=== PATIENT | male | born 1970 | race Caucasian/White ===

== ENCOUNTER 2023-03-08 07:58 | Inpatient (IN) | payer MEDICARE ==
[2023-03-08] MEDS ORDERED: Albuterol 8 GM Inhaler INH PRN (15:56)
[2023-03-08] MEDS ORDERED: Naloxone 4 MG Nasal Spray NAS PRN (15:56)
[2023-03-08] MEDS ORDERED: [UNRECOGNIZED DRUG - OTHER] FLUSH PRN (15:56)
[2023-03-08] MEDS ORDERED: SODIUM CHLORIDE FLUSH PRN (15:56)
[2023-03-08] MEDS ORDERED: Baclofen 10 MG Tab PO ONE (16:00)
[2023-03-08] MEDS ORDERED: ceFAZolin 2 GM Vial IVPUSH ONE (16:00)
[2023-03-08] MEDS ORDERED: oxyCODONE 5 MG Tab PO PRN (16:07)
[2023-03-08] MEDS: oxyCODONE 5 MG Tab PO PRN (16:14)
[2023-03-08] MEDS: Sodium Chloride 0.9% 10 ML Syringe FLUSH PRN (16:19)
[2023-03-08] MEDS: Ibuprofen 400 MG Tab PO SCH ×2 (16:26→20:02)
[2023-03-08] MEDS: Acetaminophen 500 MG Tab PO SCH ×2 (16:27→20:01)
[2023-03-08] MEDS: Pregabalin 100 MG Cap PO SCH (20:01)
[2023-03-08] MEDS: Tamsulosin 0.4 MG Cap.ER PO SCH (20:01)
[2023-03-08] MEDS: Baclofen 10 MG Tab PO SCH (20:03)
[2023-03-08] MEDS: guaiFENesin 600 MG Tab.ER PO SCH (20:03)
[2023-03-09] MEDS: oxyCODONE 5 MG Tab PO PRN ×5 (00:16→23:31)
[2023-03-09] MEDS: Sodium Chloride 0.9% 10 ML Syringe FLUSH PRN ×5 (00:18→23:40)
[2023-03-09] MEDS: ceFAZolin 2 GM Vial IVPUSH SCH ×4 (00:20→23:33)
[2023-03-09] MEDS: Pantoprazole 40 MG Tab.CR PO SCH (06:46)
[2023-03-09] MEDS ORDERED: Sennosides/Docusate Sodium 50-8.6 MG Tab PO SCH (09:00)
[2023-03-09] MEDS ORDERED: Lactulose Soln 10 GM/15 ML 30 ML UD Cup PO PRN (09:01)
[2023-03-09] MEDS: Finasteride 5 MG Tab PO SCH (10:13)
[2023-03-09] MEDS: Atenolol 25 MG Tab PO SCH (10:13)
[2023-03-09] MEDS: Ibuprofen 400 MG Tab PO SCH ×3 (10:13→20:59)
[2023-03-09] MEDS: guaiFENesin 600 MG Tab.ER PO SCH ×3 (10:14→20:59)
[2023-03-09] MEDS: Acetaminophen 500 MG Tab PO SCH ×3 (10:14→20:58)
[2023-03-09] MEDS: Baclofen 10 MG Tab PO SCH ×3 (10:14→20:58)
[2023-03-09] MEDS: Venlafaxine 150 MG Cap.ER PO SCH (10:14)
[2023-03-09] MEDS: Pregabalin 100 MG Cap PO SCH ×2 (10:23→20:57)
[2023-03-09] MEDS: Tamsulosin 0.4 MG Cap.ER PO SCH (20:58)
[2023-03-10] MEDS: oxyCODONE 5 MG Tab PO PRN ×5 (04:47→20:54)
[2023-03-10] MEDS: Pantoprazole 40 MG Tab.CR PO SCH (06:36)
[2023-03-10] MEDS: Sodium Chloride 0.9% 10 ML Syringe FLUSH PRN ×5 (07:54→23:53)
[2023-03-10] MEDS: ceFAZolin 2 GM Vial IVPUSH SCH ×3 (07:55→23:48)
[2023-03-10] MEDS: Venlafaxine 150 MG Cap.ER PO SCH (08:41)
[2023-03-10] MEDS: Baclofen 10 MG Tab PO SCH ×3 (08:41→20:47)
[2023-03-10] MEDS: Ibuprofen 400 MG Tab PO SCH ×3 (08:41→20:47)
[2023-03-10] MEDS: guaiFENesin 600 MG Tab.ER PO SCH ×3 (08:41→20:47)
[2023-03-10] MEDS: Atenolol 25 MG Tab PO SCH (08:42)
[2023-03-10] MEDS: Acetaminophen 500 MG Tab PO SCH ×3 (08:42→20:48)
[2023-03-10] MEDS: Finasteride 5 MG Tab PO SCH (08:42)
[2023-03-10] MEDS: Pregabalin 100 MG Cap PO SCH ×2 (08:51→20:46)
[2023-03-10] MEDS: Polyethylene Glycol 3350 Powder 17 GM Packet PO PRN (15:54)
[2023-03-10] MEDS: Tamsulosin 0.4 MG Cap.ER PO SCH (20:47)
[2023-03-11] MEDS: oxyCODONE 5 MG Tab PO PRN ×5 (00:54→20:42)
[2023-03-11] MEDS: Pantoprazole 40 MG Tab.CR PO SCH (05:04)
[2023-03-11] MEDS: ceFAZolin 2 GM Vial IVPUSH SCH ×2 (08:02→16:30)
[2023-03-11] MEDS: Baclofen 10 MG Tab PO SCH ×3 (08:03→20:41)
[2023-03-11] MEDS: guaiFENesin 600 MG Tab.ER PO SCH ×3 (08:04→20:41)
[2023-03-11] MEDS: Venlafaxine 150 MG Cap.ER PO SCH (08:04)
[2023-03-11] MEDS: Finasteride 5 MG Tab PO SCH (08:04)
[2023-03-11] MEDS: Ibuprofen 400 MG Tab PO SCH ×3 (08:04→20:41)
[2023-03-11] MEDS: Acetaminophen 500 MG Tab PO SCH ×3 (08:05→20:42)
[2023-03-11] MEDS: Atenolol 25 MG Tab PO SCH (08:06)
[2023-03-11] MEDS: Pregabalin 100 MG Cap PO SCH ×2 (08:08→20:41)
[2023-03-11] MEDS: Polyethylene Glycol 3350 Powder 17 GM Packet PO PRN (13:07)
[2023-03-11] MEDS: Sodium Chloride 0.9% 10 ML Syringe FLUSH PRN ×2 (16:30→16:34)
[2023-03-11] MEDS: Tamsulosin 0.4 MG Cap.ER PO SCH (20:41)
[2023-03-12] MEDS: ceFAZolin 2 GM Vial IVPUSH SCH ×3 (00:40→17:29)
[2023-03-12] MEDS: Sodium Chloride 0.9% 10 ML Syringe FLUSH PRN ×3 (00:45→17:28)
[2023-03-12] MEDS: oxyCODONE 5 MG Tab PO PRN ×6 (00:51→23:01)
[2023-03-12] MEDS: Pantoprazole 40 MG Tab.CR PO SCH (05:46)
[2023-03-12] MEDS: Acetaminophen 500 MG Tab PO SCH ×3 (08:19→20:59)
[2023-03-12] MEDS: Venlafaxine 150 MG Cap.ER PO SCH (08:20)
[2023-03-12] MEDS: Ibuprofen 400 MG Tab PO SCH ×3 (08:20→20:58)
[2023-03-12] MEDS: guaiFENesin 600 MG Tab.ER PO SCH ×3 (08:21→20:58)
[2023-03-12] MEDS: Finasteride 5 MG Tab PO SCH (08:21)
[2023-03-12] MEDS: Baclofen 10 MG Tab PO SCH ×3 (08:21→20:58)
[2023-03-12] MEDS: Atenolol 25 MG Tab PO SCH (08:21)
[2023-03-12] MEDS: Pregabalin 100 MG Cap PO SCH ×2 (08:51→20:58)
[2023-03-12] MEDS: Tamsulosin 0.4 MG Cap.ER PO SCH (20:58)
[2023-03-13] MEDS: ceFAZolin 2 GM Vial IVPUSH SCH ×3 (00:16→16:16)
[2023-03-13] MEDS: Sodium Chloride 0.9% 10 ML Syringe FLUSH PRN ×3 (00:21→16:20)
[2023-03-13] MEDS: oxyCODONE 5 MG Tab PO PRN ×5 (03:05→21:03)
[2023-03-13] MEDS: Pantoprazole 40 MG Tab.CR PO SCH (06:06)
[2023-03-13] MEDS: Venlafaxine 150 MG Cap.ER PO SCH (08:27)
[2023-03-13] MEDS: Pregabalin 100 MG Cap PO SCH ×2 (08:27→21:01)
[2023-03-13] MEDS: guaiFENesin 600 MG Tab.ER PO SCH ×3 (08:28→21:01)
[2023-03-13] MEDS: Baclofen 10 MG Tab PO SCH ×3 (08:28→21:01)
[2023-03-13] MEDS: Finasteride 5 MG Tab PO SCH (08:29)
[2023-03-13] MEDS: Ibuprofen 400 MG Tab PO SCH ×3 (08:29→21:02)
[2023-03-13] MEDS: Atenolol 25 MG Tab PO SCH (08:29)
[2023-03-13] MEDS: Acetaminophen 500 MG Tab PO SCH ×3 (08:30→21:01)
[2023-03-13] MEDS: Tamsulosin 0.4 MG Cap.ER PO SCH (21:02)
[2023-03-14] MEDS: ceFAZolin 2 GM Vial IVPUSH SCH ×3 (00:52→15:02)
[2023-03-14] MEDS: oxyCODONE 5 MG Tab PO PRN ×6 (01:01→22:21)
[2023-03-14] MEDS: Sodium Chloride 0.9% 10 ML Syringe FLUSH PRN ×2 (01:02→05:10)
[2023-03-14] MEDS: Pantoprazole 40 MG Tab.CR PO SCH (05:03)
[2023-03-14 05:30] LABS: CREATININE 1.1 mg/dL (0.70-1.30); EST CRCL DRUG DOSING (CG) 78.35 mL/min
[2023-03-14 05:35] LABS: BASOPHILS ABSOLUTE AUTO 0.1 x10-3/uL (0.0-0.3); BASOPHILS PERCENT AUTO 2.2 % (0.3-3.8); EOSINOPHILS ABSOLUTE AUTO 0.2 x10-3/uL (0.0-0.6); EOSINOPHILS PERCENT AUTO 5.6 % (0.1-6.8); HEMOGLOBIN 11.4 g/dL (12.9-17.7); LYMPHOCYTES ABSOLUTE AUTO 1.1 x10-3/uL (0.5-4.5); LYMPHOCYTES PERCENT AUTO 27.7 % (15.8-45.3); MEAN CORPUSCULAR HEMOGLOBIN 29.5 pg (27.0-33.3); MEAN CORPUSCULAR HGB CONC 33.5 g/dL (28.7-35.3); MEAN CORPUSCULAR VOLUME 88.2 fL (80.8-98.7); MEAN PLATELET VOLUME 8.4 fL (6.7-11.0); MONOCYTES ABSOLUTE AUTO 0.4 x10-3/uL (0.0-1.2); MONOCYTES PERCENT AUTO 9.4 % (5.5-15.2); NEUTROPHILS ABSOLUTE AUTO 2.2 x10-3/uL (1.7-6.9); NEUTROPHILS PERCENT AUTO 55.1 % (40.3-71.8); PLATELET COUNT,PLT 226 x10(3)uL (117-477); RED BLOOD CELL COUNT 3.86 x10(6)uL (3.90-5.90); RED CELL DISTRIBUTION WIDTH 15.4 % (12.4-15.0)
[2023-03-14 06:02] LABS: SEDIMENTATION RATE MANUAL 94 mm/hr (0-15)
[2023-03-14] MEDS: Baclofen 10 MG Tab PO SCH ×3 (08:41→21:36)
[2023-03-14] MEDS: guaiFENesin 600 MG Tab.ER PO SCH ×3 (08:41→21:38)
[2023-03-14] MEDS: Acetaminophen 500 MG Tab PO SCH ×3 (08:41→21:37)
[2023-03-14] MEDS: Atenolol 25 MG Tab PO SCH (08:42)
[2023-03-14] MEDS: Ibuprofen 400 MG Tab PO SCH ×3 (08:43→21:36)
[2023-03-14] MEDS: Finasteride 5 MG Tab PO SCH (08:43)
[2023-03-14] MEDS: Venlafaxine 150 MG Cap.ER PO SCH (08:44)
[2023-03-14] MEDS: Pregabalin 100 MG Cap PO SCH ×2 (08:51→21:36)
[2023-03-14] MEDS: Polyethylene Glycol 3350 Powder 17 GM Packet PO PRN (18:30)
[2023-03-14] MEDS: Tamsulosin 0.4 MG Cap.ER PO SCH (21:36)
[2023-03-15] MEDS: ceFAZolin 2 GM Vial IVPUSH SCH ×4 (01:00→23:58)
[2023-03-15] MEDS: Sodium Chloride 0.9% 10 ML Syringe FLUSH PRN ×6 (01:10→23:57)
[2023-03-15] MEDS: oxyCODONE 5 MG Tab PO PRN ×6 (02:24→23:54)
[2023-03-15] MEDS: Pantoprazole 40 MG Tab.CR PO SCH (06:25)
[2023-03-15] MEDS: Acetaminophen 500 MG Tab PO SCH ×3 (08:46→20:31)
[2023-03-15] MEDS: Ibuprofen 400 MG Tab PO SCH ×3 (08:46→20:30)
[2023-03-15] MEDS: Venlafaxine 150 MG Cap.ER PO SCH (08:47)
[2023-03-15] MEDS: Atenolol 25 MG Tab PO SCH (08:47)
[2023-03-15] MEDS: guaiFENesin 600 MG Tab.ER PO SCH ×3 (08:47→20:31)
[2023-03-15] MEDS: Finasteride 5 MG Tab PO SCH (08:47)
[2023-03-15] MEDS: Baclofen 10 MG Tab PO SCH ×3 (08:48→20:30)
[2023-03-15] MEDS: Pregabalin 100 MG Cap PO SCH ×2 (08:54→20:36)
[2023-03-15] MEDS: Tamsulosin 0.4 MG Cap.ER PO SCH (20:29)
[2023-03-16] MEDS: Sodium Chloride 0.9% 10 ML Syringe FLUSH PRN ×5 (00:06→16:31)
[2023-03-16] MEDS: oxyCODONE 5 MG Tab PO PRN ×5 (03:52→20:36)
[2023-03-16] MEDS: Pantoprazole 40 MG Tab.CR PO SCH (06:38)
[2023-03-16] MEDS: ceFAZolin 2 GM Vial IVPUSH SCH ×2 (08:28→16:24)
[2023-03-16] MEDS: Venlafaxine 150 MG Cap.ER PO SCH (08:46)
[2023-03-16] MEDS: Pregabalin 100 MG Cap PO SCH ×2 (08:46→20:36)
[2023-03-16] MEDS: Ibuprofen 400 MG Tab PO SCH ×3 (08:46→20:37)
[2023-03-16] MEDS: Baclofen 10 MG Tab PO SCH ×3 (08:46→20:40)
[2023-03-16] MEDS: Finasteride 5 MG Tab PO SCH (08:47)
[2023-03-16] MEDS: guaiFENesin 600 MG Tab.ER PO SCH ×3 (08:47→20:40)
[2023-03-16] MEDS: Atenolol 25 MG Tab PO SCH (08:47)
[2023-03-16] MEDS: Acetaminophen 500 MG Tab PO SCH ×3 (08:48→20:38)
[2023-03-16] MEDS: Polyethylene Glycol 3350 Powder 17 GM Packet PO PRN (12:12)
[2023-03-16] MEDS: diphenhydrAMINE 25 MG Cap PO PRN ×2 (15:18→20:44)
[2023-03-16] MEDS: Tamsulosin 0.4 MG Cap.ER PO SCH (20:40)
[2023-03-17] MEDS: Sodium Chloride 0.9% 10 ML Syringe FLUSH PRN ×5 (00:25→16:05)
[2023-03-17] MEDS: ceFAZolin 2 GM Vial IVPUSH SCH ×3 (00:26→15:59)
[2023-03-17] MEDS: oxyCODONE 5 MG Tab PO PRN ×6 (00:30→22:26)
[2023-03-17] MEDS: diphenhydrAMINE 25 MG Cap PO PRN (00:34)
[2023-03-17] MEDS: Pantoprazole 40 MG Tab.CR PO SCH (06:07)
[2023-03-17] MEDS: Pregabalin 100 MG Cap PO SCH ×2 (09:08→22:25)
[2023-03-17] MEDS: Ibuprofen 400 MG Tab PO SCH ×3 (09:08→22:22)
[2023-03-17] MEDS: Baclofen 10 MG Tab PO SCH ×3 (09:08→22:21)
[2023-03-17] MEDS: Venlafaxine 150 MG Cap.ER PO SCH (09:08)
[2023-03-17] MEDS: guaiFENesin 600 MG Tab.ER PO SCH ×3 (09:09→22:22)
[2023-03-17] MEDS: Acetaminophen 500 MG Tab PO SCH ×3 (09:10→22:22)
[2023-03-17] MEDS: Finasteride 5 MG Tab PO SCH (09:10)
[2023-03-17] MEDS: Atenolol 25 MG Tab PO SCH (09:11)
[2023-03-17] MEDS: Tamsulosin 0.4 MG Cap.ER PO SCH (22:21)
[2023-03-18] MEDS: diphenhydrAMINE 25 MG Cap PO PRN (00:02)
[2023-03-18] MEDS: ceFAZolin 2 GM Vial IVPUSH SCH ×4 (00:02→23:29)
[2023-03-18] MEDS: Sodium Chloride 0.9% 10 ML Syringe FLUSH PRN ×5 (00:03→23:30)
[2023-03-18] MEDS: oxyCODONE 5 MG Tab PO PRN ×5 (02:43→19:58)
[2023-03-18] MEDS: Pantoprazole 40 MG Tab.CR PO SCH (06:48)
[2023-03-18] MEDS: Pregabalin 100 MG Cap PO SCH ×2 (09:28→22:08)
[2023-03-18] MEDS: Acetaminophen 500 MG Tab PO SCH ×3 (09:28→22:09)
[2023-03-18] MEDS: Baclofen 10 MG Tab PO SCH ×3 (09:30→22:08)
[2023-03-18] MEDS: Ibuprofen 400 MG Tab PO SCH ×3 (09:30→22:08)
[2023-03-18] MEDS: guaiFENesin 600 MG Tab.ER PO SCH ×3 (09:30→22:09)
[2023-03-18] MEDS: Finasteride 5 MG Tab PO SCH (09:30)
[2023-03-18] MEDS: Atenolol 25 MG Tab PO SCH (09:31)
[2023-03-18] MEDS: Venlafaxine 150 MG Cap.ER PO SCH (09:31)
[2023-03-18] MEDS: Tamsulosin 0.4 MG Cap.ER PO SCH (22:07)
[2023-03-19] MEDS: oxyCODONE 5 MG Tab PO PRN ×6 (00:06→20:47)
[2023-03-19] MEDS: Pantoprazole 40 MG Tab.CR PO SCH (05:35)
[2023-03-19] MEDS: Baclofen 10 MG Tab PO SCH ×3 (08:32→20:52)
[2023-03-19] MEDS: Atenolol 25 MG Tab PO SCH (08:33)
[2023-03-19] MEDS: Ibuprofen 400 MG Tab PO SCH ×3 (08:34→20:53)
[2023-03-19] MEDS: Acetaminophen 500 MG Tab PO SCH ×3 (08:35→20:54)
[2023-03-19] MEDS: guaiFENesin 600 MG Tab.ER PO SCH ×3 (08:36→20:53)
[2023-03-19] MEDS: Venlafaxine 150 MG Cap.ER PO SCH (08:36)
[2023-03-19] MEDS: Finasteride 5 MG Tab PO SCH (08:36)
[2023-03-19] MEDS: Sodium Chloride 0.9% 10 ML Syringe FLUSH PRN ×2 (08:37→16:33)
[2023-03-19] MEDS: ceFAZolin 2 GM Vial IVPUSH SCH ×2 (08:38→16:34)
[2023-03-19] MEDS: Pregabalin 100 MG Cap PO SCH ×2 (08:51→20:53)
[2023-03-19] MEDS: diphenhydrAMINE 25 MG Cap PO PRN ×2 (12:32→20:47)
[2023-03-19] MEDS: Tamsulosin 0.4 MG Cap.ER PO SCH (20:52)
[2023-03-20] MEDS: Sodium Chloride 0.9% 10 ML Syringe FLUSH PRN ×6 (00:02→16:27)
[2023-03-20] MEDS: ceFAZolin 2 GM Vial IVPUSH SCH ×3 (00:04→16:24)
[2023-03-20] MEDS: Pantoprazole 40 MG Tab.CR PO SCH (06:27)
[2023-03-20] MEDS: oxyCODONE 5 MG Tab PO PRN ×4 (06:31→20:53)
[2023-03-20] MEDS: Venlafaxine 150 MG Cap.ER PO SCH (08:39)
[2023-03-20] MEDS: guaiFENesin 600 MG Tab.ER PO SCH ×3 (08:40→20:44)
[2023-03-20] MEDS: Pregabalin 100 MG Cap PO SCH ×2 (08:40→20:58)
[2023-03-20] MEDS: Ibuprofen 400 MG Tab PO SCH ×3 (08:40→20:44)
[2023-03-20] MEDS: Baclofen 10 MG Tab PO SCH ×3 (08:40→20:44)
[2023-03-20] MEDS: Acetaminophen 500 MG Tab PO SCH ×3 (08:41→20:42)
[2023-03-20] MEDS: Finasteride 5 MG Tab PO SCH (08:41)
[2023-03-20] MEDS: Atenolol 25 MG Tab PO SCH (08:42)
[2023-03-20] MEDS: Tamsulosin 0.4 MG Cap.ER PO SCH (20:44)
[2023-03-20] MEDS: diphenhydrAMINE 25 MG Cap PO PRN (21:54)
[2023-03-21] MEDS: ceFAZolin 2 GM Vial IVPUSH SCH ×3 (00:58→16:19)
[2023-03-21] MEDS: Sodium Chloride 0.9% 10 ML Syringe FLUSH PRN ×6 (00:59→16:27)
[2023-03-21] MEDS: oxyCODONE 5 MG Tab PO PRN ×6 (01:04→22:01)
[2023-03-21] MEDS: Pantoprazole 40 MG Tab.CR PO SCH (04:59)
[2023-03-21] MEDS: diphenhydrAMINE 25 MG Cap PO PRN ×2 (05:01→18:23)
[2023-03-21 06:55] LABS: BASOPHILS ABSOLUTE AUTO 0.1 x10-3/uL (0.0-0.3); BASOPHILS PERCENT AUTO 3.3 % (0.3-3.8); EOSINOPHILS ABSOLUTE AUTO 0.2 x10-3/uL (0.0-0.6); EOSINOPHILS PERCENT AUTO 6.3 % (0.1-6.8); HEMATOCRIT 33.8 % (38.3-50.1); HEMOGLOBIN 11.3 g/dL (12.9-17.7); LYMPHOCYTES ABSOLUTE AUTO 0.9 x10-3/uL (0.5-4.5); LYMPHOCYTES PERCENT AUTO 30.8 % (15.8-45.3); MEAN CORPUSCULAR HEMOGLOBIN 29.5 pg (27.0-33.3); MEAN CORPUSCULAR HGB CONC 33.5 g/dL (28.7-35.3); MEAN PLATELET VOLUME 8.1 fL (6.7-11.0); MONOCYTES ABSOLUTE AUTO 0.3 x10-3/uL (0.0-1.2); MONOCYTES PERCENT AUTO 9.8 % (5.5-15.2); NEUTROPHILS ABSOLUTE AUTO 1.5 x10-3/uL (1.7-6.9); NEUTROPHILS PERCENT AUTO 49.8 % (40.3-71.8); PLATELET COUNT,PLT 148 x10(3)uL (117-477); RED BLOOD CELL COUNT 3.84 x10(6)uL (3.90-5.90); RED CELL DISTRIBUTION WIDTH 15.3 % (12.4-15.0)
[2023-03-21 07:02] LABS: CREATININE 1.1 mg/dL (0.70-1.30); EST CRCL DRUG DOSING (CG) 78.35 mL/min
[2023-03-21 07:18] LABS: SEDIMENTATION RATE MANUAL 75 mm/hr (0-15)
[2023-03-21] MEDS: Venlafaxine 150 MG Cap.ER PO SCH (09:08)
[2023-03-21] MEDS: Baclofen 10 MG Tab PO SCH ×3 (09:08→20:13)
[2023-03-21] MEDS: Pregabalin 100 MG Cap PO SCH ×2 (09:08→20:19)
[2023-03-21] MEDS: Finasteride 5 MG Tab PO SCH (09:09)
[2023-03-21] MEDS: Ibuprofen 400 MG Tab PO SCH ×3 (09:09→20:12)
[2023-03-21] MEDS: Acetaminophen 500 MG Tab PO SCH ×3 (09:09→20:11)
[2023-03-21] MEDS: guaiFENesin 600 MG Tab.ER PO SCH ×3 (09:09→20:12)
[2023-03-21] MEDS: Atenolol 25 MG Tab PO SCH (09:10)
[2023-03-21] MEDS: Tamsulosin 0.4 MG Cap.ER PO SCH (20:12)
[2023-03-22] MEDS: Sodium Chloride 0.9% 10 ML Syringe FLUSH PRN ×6 (00:09→23:54)
[2023-03-22] MEDS: ceFAZolin 2 GM Vial IVPUSH SCH ×4 (00:09→23:55)
[2023-03-22] MEDS: Pantoprazole 40 MG Tab.CR PO SCH (05:59)
[2023-03-22] MEDS: oxyCODONE 5 MG Tab PO PRN ×5 (05:59→22:10)
[2023-03-22] MEDS: Venlafaxine 150 MG Cap.ER PO SCH (09:49)
[2023-03-22] MEDS: Baclofen 10 MG Tab PO SCH ×3 (09:49→20:54)
[2023-03-22] MEDS: Finasteride 5 MG Tab PO SCH (09:50)
[2023-03-22] MEDS: guaiFENesin 600 MG Tab.ER PO SCH ×3 (09:50→20:55)
[2023-03-22] MEDS: Ibuprofen 400 MG Tab PO SCH ×3 (09:50→20:54)
[2023-03-22] MEDS: Acetaminophen 500 MG Tab PO SCH ×3 (09:51→20:55)
[2023-03-22] MEDS: Atenolol 25 MG Tab PO SCH (09:52)
[2023-03-22] MEDS: Pregabalin 100 MG Cap PO SCH ×2 (09:56→21:02)
[2023-03-22] MEDS: diphenhydrAMINE 25 MG Cap PO PRN (13:01)
[2023-03-22] MEDS: Tamsulosin 0.4 MG Cap.ER PO SCH (20:54)
[2023-03-22] MEDS: Polyethylene Glycol 3350 Powder 17 GM Packet PO PRN (21:02)
[2023-03-23] MEDS: Sodium Chloride 0.9% 10 ML Syringe FLUSH PRN ×7 (00:01→23:54)
[2023-03-23] MEDS: oxyCODONE 5 MG Tab PO PRN ×4 (02:10→21:44)
[2023-03-23] MEDS: Pantoprazole 40 MG Tab.CR PO SCH (06:09)
[2023-03-23] MEDS: diphenhydrAMINE 25 MG Cap PO PRN ×2 (06:09→13:31)
[2023-03-23] MEDS: ceFAZolin 2 GM Vial IVPUSH SCH ×3 (08:31→23:48)
[2023-03-23] MEDS: Baclofen 10 MG Tab PO SCH ×3 (08:33→21:49)
[2023-03-23] MEDS: Pregabalin 100 MG Cap PO SCH ×2 (08:33→21:46)
[2023-03-23] MEDS: guaiFENesin 600 MG Tab.ER PO SCH ×3 (08:33→21:50)
[2023-03-23] MEDS: Ibuprofen 400 MG Tab PO SCH ×3 (08:34→21:50)
[2023-03-23] MEDS: Acetaminophen 500 MG Tab PO SCH ×3 (08:34→21:48)
[2023-03-23] MEDS: Atenolol 25 MG Tab PO SCH (08:35)
[2023-03-23] MEDS: Venlafaxine 150 MG Cap.ER PO SCH (08:45)
[2023-03-23] MEDS: Finasteride 5 MG Tab PO SCH (08:45)
[2023-03-23] MEDS: Tamsulosin 0.4 MG Cap.ER PO SCH (21:49)
[2023-03-24] MEDS: diphenhydrAMINE 25 MG Cap PO PRN ×3 (00:34→18:08)
[2023-03-24] MEDS: oxyCODONE 5 MG Tab PO PRN ×5 (01:47→22:15)
[2023-03-24] MEDS: Pantoprazole 40 MG Tab.CR PO SCH (05:53)
[2023-03-24] MEDS: ceFAZolin 2 GM Vial IVPUSH SCH ×2 (08:45→17:43)
[2023-03-24] MEDS: Ibuprofen 400 MG Tab PO SCH ×3 (08:47→20:47)
[2023-03-24] MEDS: Atenolol 25 MG Tab PO SCH (08:47)
[2023-03-24] MEDS: Venlafaxine 150 MG Cap.ER PO SCH (08:47)
[2023-03-24] MEDS: Finasteride 5 MG Tab PO SCH (08:47)
[2023-03-24] MEDS: Baclofen 10 MG Tab PO SCH ×3 (08:48→20:46)
[2023-03-24] MEDS: guaiFENesin 600 MG Tab.ER PO SCH ×3 (08:48→20:47)
[2023-03-24] MEDS: Acetaminophen 500 MG Tab PO SCH ×3 (08:48→20:46)
[2023-03-24] MEDS: Pregabalin 100 MG Cap PO SCH ×2 (10:04→20:45)
[2023-03-24] MEDS: Tamsulosin 0.4 MG Cap.ER PO SCH (20:45)
[2023-03-25] MEDS: Sodium Chloride 0.9% 10 ML Syringe FLUSH PRN ×3 (01:37→08:12)
[2023-03-25] MEDS: ceFAZolin 2 GM Vial IVPUSH SCH ×3 (01:38→16:21)
[2023-03-25] MEDS: oxyCODONE 5 MG Tab PO PRN ×5 (02:13→20:50)
[2023-03-25] MEDS: diphenhydrAMINE 25 MG Cap PO PRN ×2 (02:13→13:02)
[2023-03-25] MEDS: Pantoprazole 40 MG Tab.CR PO SCH (06:18)
[2023-03-25] MEDS: Baclofen 10 MG Tab PO SCH ×3 (08:08→20:48)
[2023-03-25] MEDS: guaiFENesin 600 MG Tab.ER PO SCH ×3 (08:08→20:47)
[2023-03-25] MEDS: Ibuprofen 400 MG Tab PO SCH ×3 (08:08→20:48)
[2023-03-25] MEDS: Acetaminophen 500 MG Tab PO SCH ×3 (08:08→20:49)
[2023-03-25] MEDS: Pregabalin 100 MG Cap PO SCH ×2 (08:09→20:48)
[2023-03-25] MEDS: Venlafaxine 150 MG Cap.ER PO SCH (08:11)
[2023-03-25] MEDS: Finasteride 5 MG Tab PO SCH (10:27)
[2023-03-25] MEDS: Atenolol 25 MG Tab PO SCH (10:28)
[2023-03-25] MEDS: Tamsulosin 0.4 MG Cap.ER PO SCH (20:48)
[2023-03-26] MEDS: ceFAZolin 2 GM Vial IVPUSH SCH ×3 (00:50→16:51)
[2023-03-26] MEDS: Sodium Chloride 0.9% 10 ML Syringe FLUSH PRN ×3 (00:50→09:11)
[2023-03-26] MEDS: oxyCODONE 5 MG Tab PO PRN ×4 (00:51→13:43)
[2023-03-26] MEDS: diphenhydrAMINE 25 MG Cap PO PRN ×2 (03:47→19:01)
[2023-03-26] MEDS: Polyethylene Glycol 3350 Powder 17 GM Packet PO PRN (03:51)
[2023-03-26] MEDS: Pantoprazole 40 MG Tab.CR PO SCH (06:11)
[2023-03-26] MEDS: Baclofen 10 MG Tab PO SCH ×3 (09:12→21:19)
[2023-03-26] MEDS: Pregabalin 100 MG Cap PO SCH ×2 (09:12→21:18)
[2023-03-26] MEDS: Ibuprofen 400 MG Tab PO SCH ×3 (09:12→21:19)
[2023-03-26] MEDS: Finasteride 5 MG Tab PO SCH (09:13)
[2023-03-26] MEDS: Acetaminophen 500 MG Tab PO SCH ×3 (09:14→21:18)
[2023-03-26] MEDS: Atenolol 25 MG Tab PO SCH (09:14)
[2023-03-26] MEDS: guaiFENesin 600 MG Tab.ER PO SCH ×3 (09:16→21:19)
[2023-03-26] MEDS: Venlafaxine 150 MG Cap.ER PO SCH (09:17)
[2023-03-26] MEDS ORDERED: Polyethylene Glycol 3350 Powder 17 GM Packet PO ONE (15:00)
[2023-03-26] MEDS: oxyCODONE 5 MG Tab PO SCH ×2 (17:51→21:18)
[2023-03-26] MEDS: Tamsulosin 0.4 MG Cap.ER PO SCH (21:19)
[2023-03-27] MEDS: Sodium Chloride 0.9% 10 ML Syringe FLUSH PRN ×6 (00:55→15:44)
[2023-03-27] MEDS: ceFAZolin 2 GM Vial IVPUSH SCH ×3 (00:55→15:41)
[2023-03-27] MEDS: oxyCODONE 5 MG Tab PO SCH ×6 (01:07→21:19)
[2023-03-27] MEDS: Pantoprazole 40 MG Tab.CR PO SCH (05:25)
[2023-03-27] MEDS: diphenhydrAMINE 25 MG Cap PO PRN ×2 (09:31→18:51)
[2023-03-27] MEDS: guaiFENesin 600 MG Tab.ER PO SCH ×3 (09:31→21:19)
[2023-03-27] MEDS: Acetaminophen 500 MG Tab PO SCH ×3 (09:32→21:19)
[2023-03-27] MEDS: Baclofen 10 MG Tab PO SCH ×3 (09:32→21:18)
[2023-03-27] MEDS: Ibuprofen 400 MG Tab PO SCH ×3 (09:32→21:18)
[2023-03-27] MEDS: Venlafaxine 150 MG Cap.ER PO SCH (09:32)
[2023-03-27] MEDS: Finasteride 5 MG Tab PO SCH (09:33)
[2023-03-27] MEDS: Atenolol 25 MG Tab PO SCH (09:34)
[2023-03-27] MEDS: Pregabalin 100 MG Cap PO SCH ×2 (09:39→21:19)
[2023-03-27] MEDS: valACYclovir 500 MG Tab PO SCH (09:39)
[2023-03-27] MEDS: Tamsulosin 0.4 MG Cap.ER PO SCH (21:18)
[2023-03-28] MEDS: ceFAZolin 2 GM Vial IVPUSH SCH ×3 (00:55→16:08)
[2023-03-28] MEDS: Sodium Chloride 0.9% 10 ML Syringe FLUSH PRN ×6 (00:55→16:12)
[2023-03-28] MEDS: oxyCODONE 5 MG Tab PO SCH ×6 (01:09→21:05)
[2023-03-28] MEDS: Pantoprazole 40 MG Tab.CR PO SCH (05:25)
[2023-03-28 08:18] LABS: BASOPHILS ABSOLUTE AUTO 0.1 x10-3/uL (0.0-0.3); EOSINOPHILS ABSOLUTE AUTO 0.2 x10-3/uL (0.0-0.6); EOSINOPHILS PERCENT AUTO 6.7 % (0.1-6.8); HEMATOCRIT 35.1 % (38.3-50.1); HEMOGLOBIN 11.6 g/dL (12.9-17.7); LYMPHOCYTES ABSOLUTE AUTO 0.9 x10-3/uL (0.5-4.5); LYMPHOCYTES PERCENT AUTO 27.9 % (15.8-45.3); MEAN CORPUSCULAR HEMOGLOBIN 29.3 pg (27.0-33.3); MEAN CORPUSCULAR HGB CONC 33.1 g/dL (28.7-35.3); MEAN CORPUSCULAR VOLUME 88.7 fL (80.8-98.7); MONOCYTES ABSOLUTE AUTO 0.3 x10-3/uL (0.0-1.2); NEUTROPHILS ABSOLUTE AUTO 1.7 x10-3/uL (1.7-6.9); NEUTROPHILS PERCENT AUTO 54.4 % (40.3-71.8); PLATELET COUNT,PLT 138 x10(3)uL (117-477); RED BLOOD CELL COUNT 3.96 x10(6)uL (3.90-5.90); WHITE BLOOD CELL COUNT,WBC 3.2 x10-3/uL (3.2-10.1)
[2023-03-28 08:28] LABS: CREATININE 1.2 mg/dL (0.70-1.30); EST CRCL DRUG DOSING (CG) 71.82 mL/min
[2023-03-28 08:40] LABS: SEDIMENTATION RATE MANUAL 62 mm/hr (0-15)
[2023-03-28] MEDS: valACYclovir 500 MG Tab PO SCH (09:15)
[2023-03-28] MEDS: Finasteride 5 MG Tab PO SCH (09:16)
[2023-03-28] MEDS: Pregabalin 100 MG Cap PO SCH ×2 (09:16→21:06)
[2023-03-28] MEDS: Acetaminophen 500 MG Tab PO SCH ×3 (09:16→21:13)
[2023-03-28] MEDS: Ibuprofen 400 MG Tab PO SCH ×3 (09:17→21:13)
[2023-03-28] MEDS: Baclofen 10 MG Tab PO SCH ×3 (09:17→21:13)
[2023-03-28] MEDS: Venlafaxine 150 MG Cap.ER PO SCH (09:18)
[2023-03-28] MEDS: guaiFENesin 600 MG Tab.ER PO SCH ×3 (09:18→21:13)
[2023-03-28] MEDS: Atenolol 25 MG Tab PO SCH (09:21)
[2023-03-28] MEDS: diphenhydrAMINE 25 MG Cap PO PRN (18:14)
[2023-03-28] MEDS: Tamsulosin 0.4 MG Cap.ER PO SCH (21:13)
[2023-03-29] MEDS: ceFAZolin 2 GM Vial IVPUSH SCH ×3 (01:00→15:51)
[2023-03-29] MEDS: oxyCODONE 5 MG Tab PO SCH ×6 (01:01→21:26)
[2023-03-29] MEDS: Pantoprazole 40 MG Tab.CR PO SCH (05:40)
[2023-03-29] MEDS: Sodium Chloride 0.9% 10 ML Syringe FLUSH PRN ×4 (07:48→16:03)
[2023-03-29] MEDS: Venlafaxine 150 MG Cap.ER PO SCH (08:46)
[2023-03-29] MEDS: valACYclovir 500 MG Tab PO SCH (08:46)
[2023-03-29] MEDS: Finasteride 5 MG Tab PO SCH (08:46)
[2023-03-29] MEDS: Ibuprofen 400 MG Tab PO SCH ×3 (08:47→21:27)
[2023-03-29] MEDS: Baclofen 10 MG Tab PO SCH ×3 (08:50→21:28)
[2023-03-29] MEDS: Atenolol 25 MG Tab PO SCH (08:51)
[2023-03-29] MEDS: guaiFENesin 600 MG Tab.ER PO SCH ×3 (08:51→21:26)
[2023-03-29] MEDS: Pregabalin 100 MG Cap PO SCH ×2 (09:17→21:26)
[2023-03-29] MEDS: Acetaminophen 500 MG Tab PO SCH ×3 (09:18→21:26)
[2023-03-29] MEDS: diphenhydrAMINE 25 MG Cap PO PRN ×2 (13:25→21:31)
[2023-03-29] MEDS: Tamsulosin 0.4 MG Cap.ER PO SCH (21:26)
[2023-03-30] MEDS: Sodium Chloride 0.9% 10 ML Syringe FLUSH PRN ×6 (00:58→16:40)
[2023-03-30] MEDS: ceFAZolin 2 GM Vial IVPUSH SCH ×3 (00:59→16:34)
[2023-03-30] MEDS: oxyCODONE 5 MG Tab PO SCH ×6 (01:03→21:24)
[2023-03-30] MEDS: Pantoprazole 40 MG Tab.CR PO SCH (05:11)
[2023-03-30] MEDS: diphenhydrAMINE 25 MG Cap PO PRN ×3 (09:26→21:30)
[2023-03-30] MEDS: Pregabalin 100 MG Cap PO SCH ×2 (09:26→21:23)
[2023-03-30] MEDS: Ibuprofen 400 MG Tab PO SCH ×3 (09:27→21:22)
[2023-03-30] MEDS: Baclofen 10 MG Tab PO SCH ×3 (09:28→21:23)
[2023-03-30] MEDS: Acetaminophen 500 MG Tab PO SCH ×3 (09:28→21:23)
[2023-03-30] MEDS: Atenolol 25 MG Tab PO SCH (09:28)
[2023-03-30] MEDS: valACYclovir 500 MG Tab PO SCH (09:28)
[2023-03-30] MEDS: Finasteride 5 MG Tab PO SCH (09:29)
[2023-03-30] MEDS: guaiFENesin 600 MG Tab.ER PO SCH ×3 (09:29→21:23)
[2023-03-30] MEDS: Venlafaxine 150 MG Cap.ER PO SCH (09:29)
[2023-03-30] MEDS: Tamsulosin 0.4 MG Cap.ER PO SCH (21:23)
[2023-03-31] MEDS: Sodium Chloride 0.9% 10 ML Syringe FLUSH PRN ×2 (00:55→01:02)
[2023-03-31] MEDS: ceFAZolin 2 GM Vial IVPUSH SCH ×3 (00:55→16:00)
[2023-03-31] MEDS: oxyCODONE 5 MG Tab PO SCH ×6 (01:03→20:56)
[2023-03-31] MEDS: Pantoprazole 40 MG Tab.CR PO SCH (05:13)
[2023-03-31] MEDS: Pregabalin 100 MG Cap PO SCH ×2 (08:42→20:56)
[2023-03-31] MEDS: Finasteride 5 MG Tab PO SCH (08:43)
[2023-03-31] MEDS: valACYclovir 500 MG Tab PO SCH (08:43)
[2023-03-31] MEDS: Acetaminophen 500 MG Tab PO SCH ×3 (08:44→20:57)
[2023-03-31] MEDS: Venlafaxine 150 MG Cap.ER PO SCH (08:44)
[2023-03-31] MEDS: guaiFENesin 600 MG Tab.ER PO SCH ×3 (08:45→20:58)
[2023-03-31] MEDS: Ibuprofen 400 MG Tab PO SCH ×3 (08:46→20:58)
[2023-03-31] MEDS: Baclofen 10 MG Tab PO SCH ×3 (08:47→20:58)
[2023-03-31] MEDS: Atenolol 25 MG Tab PO SCH (08:48)
[2023-03-31] MEDS: diphenhydrAMINE 25 MG Cap PO PRN (18:04)
[2023-03-31] MEDS: Tamsulosin 0.4 MG Cap.ER PO SCH (20:57)
[2023-04-01] MEDS: oxyCODONE 5 MG Tab PO SCH ×6 (00:57→20:50)
[2023-04-01] MEDS: ceFAZolin 2 GM Vial IVPUSH SCH ×3 (00:57→16:41)
[2023-04-01] MEDS: diphenhydrAMINE 25 MG Cap PO PRN ×3 (00:57→20:59)
[2023-04-01] MEDS: Sodium Chloride 0.9% 10 ML Syringe FLUSH PRN ×5 (01:06→16:44)
[2023-04-01] MEDS: Pantoprazole 40 MG Tab.CR PO SCH (05:03)
[2023-04-01] MEDS: Pregabalin 100 MG Cap PO SCH ×2 (09:26→20:50)
[2023-04-01] MEDS: valACYclovir 500 MG Tab PO SCH (09:27)
[2023-04-01] MEDS: Acetaminophen 500 MG Tab PO SCH ×3 (09:27→20:50)
[2023-04-01] MEDS: guaiFENesin 600 MG Tab.ER PO SCH ×3 (09:28→20:50)
[2023-04-01] MEDS: Ibuprofen 400 MG Tab PO SCH ×3 (09:28→20:51)
[2023-04-01] MEDS: Finasteride 5 MG Tab PO SCH (09:28)
[2023-04-01] MEDS: Baclofen 10 MG Tab PO SCH ×3 (09:28→20:50)
[2023-04-01] MEDS: Venlafaxine 150 MG Cap.ER PO SCH (09:29)
[2023-04-01] MEDS: Atenolol 25 MG Tab PO SCH (09:29)
[2023-04-01] MEDS: Tamsulosin 0.4 MG Cap.ER PO SCH (20:51)
[2023-04-02] MEDS: oxyCODONE 5 MG Tab PO SCH ×6 (00:52→20:51)
[2023-04-02] MEDS: ceFAZolin 2 GM Vial IVPUSH SCH ×3 (00:54→15:50)
[2023-04-02] MEDS: Sodium Chloride 0.9% 10 ML Syringe FLUSH PRN ×4 (00:59→15:50)
[2023-04-02] MEDS: Pantoprazole 40 MG Tab.CR PO SCH (05:06)
[2023-04-02] MEDS: Finasteride 5 MG Tab PO SCH (08:50)
[2023-04-02] MEDS: guaiFENesin 600 MG Tab.ER PO SCH ×3 (08:50→20:28)
[2023-04-02] MEDS: Baclofen 10 MG Tab PO SCH ×3 (08:51→20:28)
[2023-04-02] MEDS: Ibuprofen 400 MG Tab PO SCH ×3 (08:51→20:27)
[2023-04-02] MEDS: valACYclovir 500 MG Tab PO SCH (08:52)
[2023-04-02] MEDS: Acetaminophen 500 MG Tab PO SCH ×3 (08:53→20:28)
[2023-04-02] MEDS: Atenolol 25 MG Tab PO SCH (08:54)
[2023-04-02] MEDS: Venlafaxine 150 MG Cap.ER PO SCH (08:56)
[2023-04-02] MEDS: Pregabalin 100 MG Cap PO SCH ×2 (09:04→20:27)
[2023-04-02] MEDS: diphenhydrAMINE 25 MG Cap PO PRN (20:27)
[2023-04-02] MEDS: Tamsulosin 0.4 MG Cap.ER PO SCH (20:28)
[2023-04-03] MEDS: ceFAZolin 2 GM Vial IVPUSH SCH ×3 (00:57→15:15)
[2023-04-03] MEDS: oxyCODONE 5 MG Tab PO SCH ×6 (01:02→21:02)
[2023-04-03] MEDS: Sodium Chloride 0.9% 10 ML Syringe FLUSH PRN ×5 (01:03→15:17)
[2023-04-03] MEDS: Pantoprazole 40 MG Tab.CR PO SCH (05:09)
[2023-04-03] MEDS: Venlafaxine 150 MG Cap.ER PO SCH (08:08)
[2023-04-03] MEDS: Baclofen 10 MG Tab PO SCH ×3 (08:08→21:03)
[2023-04-03] MEDS: Ibuprofen 400 MG Tab PO SCH ×3 (08:09→21:03)
[2023-04-03] MEDS: Finasteride 5 MG Tab PO SCH (08:10)
[2023-04-03] MEDS: guaiFENesin 600 MG Tab.ER PO SCH ×3 (08:10→21:01)
[2023-04-03] MEDS: Atenolol 25 MG Tab PO SCH (08:13)
[2023-04-03] MEDS: Acetaminophen 500 MG Tab PO SCH ×3 (08:13→21:04)
[2023-04-03] MEDS: Pregabalin 100 MG Cap PO SCH ×2 (08:36→21:02)
[2023-04-03] MEDS: Tamsulosin 0.4 MG Cap.ER PO SCH (21:02)
[2023-04-03] MEDS: diphenhydrAMINE 25 MG Cap PO PRN (21:13)
[2023-04-04] MEDS: Sodium Chloride 0.9% 10 ML Syringe FLUSH PRN ×3 (01:15→08:59)
[2023-04-04] MEDS: oxyCODONE 5 MG Tab PO SCH ×6 (01:20→21:09)
[2023-04-04] MEDS: ceFAZolin 2 GM Vial IVPUSH SCH ×3 (01:26→16:56)
[2023-04-04] MEDS: Pantoprazole 40 MG Tab.CR PO SCH (05:23)
[2023-04-04] MEDS: diphenhydrAMINE 25 MG Cap PO PRN ×3 (05:34→21:10)
[2023-04-04 07:03] LABS: BASOPHILS ABSOLUTE AUTO 0.1 x10-3/uL (0.0-0.3); BASOPHILS PERCENT AUTO 1.9 % (0.3-3.8); EOSINOPHILS ABSOLUTE AUTO 0.1 x10-3/uL (0.0-0.6); EOSINOPHILS PERCENT AUTO 4.7 % (0.1-6.8); HEMATOCRIT 32.6 % (38.3-50.1); LYMPHOCYTES ABSOLUTE AUTO 0.7 x10-3/uL (0.5-4.5); LYMPHOCYTES PERCENT AUTO 24.4 % (15.8-45.3); MEAN CORPUSCULAR HEMOGLOBIN 29.7 pg (27.0-33.3); MEAN CORPUSCULAR HGB CONC 33.8 g/dL (28.7-35.3); MEAN CORPUSCULAR VOLUME 87.8 fL (80.8-98.7); MONOCYTES ABSOLUTE AUTO 0.4 x10-3/uL (0.0-1.2); MONOCYTES PERCENT AUTO 13.7 % (5.5-15.2); NEUTROPHILS ABSOLUTE AUTO 1.6 x10-3/uL (1.7-6.9); NEUTROPHILS PERCENT AUTO 55.3 % (40.3-71.8); PLATELET COUNT,PLT 150 x10(3)uL (117-477); RED BLOOD CELL COUNT 3.71 x10(6)uL (3.90-5.90); RED CELL DISTRIBUTION WIDTH 14.6 % (12.4-15.0); WHITE BLOOD CELL COUNT,WBC 2.8 x10-3/uL (3.2-10.1)
[2023-04-04 07:09] LABS: CREATININE 1.3 mg/dL (0.70-1.30); EST CRCL DRUG DOSING (CG) 66.29 mL/min
[2023-04-04 07:23] LABS: SEDIMENTATION RATE MANUAL 46 mm/hr (0-15)
[2023-04-04] MEDS: Finasteride 5 MG Tab PO SCH (09:18)
[2023-04-04] MEDS: Baclofen 10 MG Tab PO SCH ×3 (09:21→21:06)
[2023-04-04] MEDS: Pregabalin 100 MG Cap PO SCH ×2 (09:22→21:19)
[2023-04-04] MEDS: Ibuprofen 400 MG Tab PO SCH ×3 (09:22→21:06)
[2023-04-04] MEDS: guaiFENesin 600 MG Tab.ER PO SCH ×3 (09:23→21:08)
[2023-04-04] MEDS: Acetaminophen 500 MG Tab PO SCH ×3 (09:24→21:08)
[2023-04-04] MEDS: Venlafaxine 150 MG Cap.ER PO SCH (09:24)
[2023-04-04] MEDS: Atenolol 25 MG Tab PO SCH (09:24)
[2023-04-04] MEDS: Tamsulosin 0.4 MG Cap.ER PO SCH (21:06)
[2023-04-04] MEDS: Polyethylene Glycol 3350 Powder 17 GM Packet PO PRN (21:10)
[2023-04-04] MEDS ORDERED: Pregabalin 100 MG Cap ONE (21:18)
[2023-04-05] MEDS: ceFAZolin 2 GM Vial IVPUSH SCH ×3 (00:31→16:48)
[2023-04-05] MEDS: Sodium Chloride 0.9% 10 ML Syringe FLUSH PRN ×2 (00:35→08:22)
[2023-04-05] MEDS: oxyCODONE 5 MG Tab PO SCH ×6 (01:03→21:00)
[2023-04-05] MEDS: Pantoprazole 40 MG Tab.CR PO SCH (05:03)
[2023-04-05] MEDS: Pregabalin 100 MG Cap PO SCH ×2 (08:11→21:02)
[2023-04-05] MEDS: Baclofen 10 MG Tab PO SCH ×3 (08:11→21:01)
[2023-04-05] MEDS: Venlafaxine 150 MG Cap.ER PO SCH (08:11)
[2023-04-05] MEDS: Ibuprofen 400 MG Tab PO SCH ×3 (08:12→21:02)
[2023-04-05] MEDS: guaiFENesin 600 MG Tab.ER PO SCH ×3 (08:13→21:02)
[2023-04-05] MEDS: Acetaminophen 500 MG Tab PO SCH ×3 (08:14→21:03)
[2023-04-05] MEDS: Finasteride 5 MG Tab PO SCH (08:14)
[2023-04-05] MEDS: Atenolol 25 MG Tab PO SCH (08:16)
[2023-04-05] MEDS: diphenhydrAMINE 25 MG Cap PO PRN ×2 (09:19→21:03)
[2023-04-05] MEDS: Polyethylene Glycol 3350 Powder 17 GM Packet PO PRN (09:20)
[2023-04-05] MEDS: Tamsulosin 0.4 MG Cap.ER PO SCH (21:01)
[2023-04-06] MEDS: ceFAZolin 2 GM Vial IVPUSH SCH ×3 (00:30→16:26)
[2023-04-06] MEDS: Sodium Chloride 0.9% 10 ML Syringe FLUSH PRN ×3 (00:37→08:14)
[2023-04-06] MEDS: oxyCODONE 5 MG Tab PO SCH ×6 (00:43→20:56)
[2023-04-06] MEDS: Pantoprazole 40 MG Tab.CR PO SCH (05:10)
[2023-04-06] MEDS: Venlafaxine 150 MG Cap.ER PO SCH (09:09)
[2023-04-06] MEDS: Baclofen 10 MG Tab PO SCH ×3 (09:09→20:59)
[2023-04-06] MEDS: Ibuprofen 400 MG Tab PO SCH ×3 (09:09→20:59)
[2023-04-06] MEDS: Pregabalin 100 MG Cap PO SCH ×2 (09:09→20:56)
[2023-04-06] MEDS: Finasteride 5 MG Tab PO SCH (09:10)
[2023-04-06] MEDS: guaiFENesin 600 MG Tab.ER PO SCH ×3 (09:10→21:01)
[2023-04-06] MEDS: Acetaminophen 500 MG Tab PO SCH ×3 (09:11→21:00)
[2023-04-06] MEDS: Atenolol 25 MG Tab PO SCH (09:12)
[2023-04-06] MEDS: Tamsulosin 0.4 MG Cap.ER PO SCH (20:58)
[2023-04-06] MEDS: diphenhydrAMINE 25 MG Cap PO PRN (22:33)
[2023-04-07] MEDS: Sodium Chloride 0.9% 10 ML Syringe FLUSH PRN ×4 (00:11→16:39)
[2023-04-07] MEDS: ceFAZolin 2 GM Vial IVPUSH SCH ×3 (00:12→16:32)
[2023-04-07] MEDS: oxyCODONE 5 MG Tab PO SCH ×6 (01:01→21:07)
[2023-04-07] MEDS: Pantoprazole 40 MG Tab.CR PO SCH (05:21)
[2023-04-07] MEDS: Pregabalin 100 MG Cap PO SCH ×2 (09:10→21:04)
[2023-04-07] MEDS: Finasteride 5 MG Tab PO SCH (09:10)
[2023-04-07] MEDS: Acetaminophen 500 MG Tab PO SCH ×3 (09:11→21:06)
[2023-04-07] MEDS: Atenolol 25 MG Tab PO SCH (09:12)
[2023-04-07] MEDS: Baclofen 10 MG Tab PO SCH ×3 (09:13→21:04)
[2023-04-07] MEDS: Ibuprofen 400 MG Tab PO SCH ×3 (09:13→21:05)
[2023-04-07] MEDS: guaiFENesin 600 MG Tab.ER PO SCH ×3 (09:14→21:04)
[2023-04-07] MEDS: Venlafaxine 150 MG Cap.ER PO SCH (09:15)
[2023-04-07] MEDS: Polyethylene Glycol 3350 Powder 17 GM Packet PO PRN (09:24)
[2023-04-07] MEDS: diphenhydrAMINE 25 MG Cap PO PRN (13:15)
[2023-04-07] MEDS: Tamsulosin 0.4 MG Cap.ER PO SCH (21:13)
[2023-04-08] MEDS: Sodium Chloride 0.9% 10 ML Syringe FLUSH PRN ×3 (00:11→09:24)
[2023-04-08] MEDS: ceFAZolin 2 GM Vial IVPUSH SCH ×3 (00:12→15:48)
[2023-04-08] MEDS: oxyCODONE 5 MG Tab PO SCH ×6 (03:11→21:22)
[2023-04-08] MEDS: Pantoprazole 40 MG Tab.CR PO SCH (06:00)
[2023-04-08] MEDS: Pregabalin 100 MG Cap PO SCH ×2 (09:12→21:20)
[2023-04-08] MEDS: Baclofen 10 MG Tab PO SCH ×3 (09:13→21:20)
[2023-04-08] MEDS: Acetaminophen 500 MG Tab PO SCH ×3 (09:13→21:22)
[2023-04-08] MEDS: Ibuprofen 400 MG Tab PO SCH ×3 (09:13→21:21)
[2023-04-08] MEDS: Venlafaxine 150 MG Cap.ER PO SCH (09:13)
[2023-04-08] MEDS: guaiFENesin 600 MG Tab.ER PO SCH ×3 (09:13→21:21)
[2023-04-08] MEDS: Finasteride 5 MG Tab PO SCH (09:13)
[2023-04-08] MEDS: Atenolol 25 MG Tab PO SCH (09:15)
[2023-04-08] MEDS: diphenhydrAMINE 25 MG Cap PO PRN ×3 (09:20→23:25)
[2023-04-08] MEDS: Tamsulosin 0.4 MG Cap.ER PO SCH (21:19)
[2023-04-09] MEDS: ceFAZolin 2 GM Vial IVPUSH SCH ×3 (01:00→17:00)
[2023-04-09] MEDS: oxyCODONE 5 MG Tab PO SCH ×6 (01:02→21:04)
[2023-04-09] MEDS: Sodium Chloride 0.9% 10 ML Syringe FLUSH PRN ×4 (01:09→17:07)
[2023-04-09] MEDS: Pantoprazole 40 MG Tab.CR PO SCH (05:20)
[2023-04-09] MEDS: Pregabalin 100 MG Cap PO SCH ×2 (09:20→21:02)
[2023-04-09] MEDS: Acetaminophen 500 MG Tab PO SCH ×3 (09:21→21:03)
[2023-04-09] MEDS: Atenolol 25 MG Tab PO SCH (09:23)
[2023-04-09] MEDS: guaiFENesin 600 MG Tab.ER PO SCH ×3 (09:24→21:03)
[2023-04-09] MEDS: Finasteride 5 MG Tab PO SCH (09:24)
[2023-04-09] MEDS: Venlafaxine 150 MG Cap.ER PO SCH (09:25)
[2023-04-09] MEDS: Ibuprofen 400 MG Tab PO SCH ×3 (09:26→21:02)
[2023-04-09] MEDS: Baclofen 10 MG Tab PO SCH ×3 (09:26→21:02)
[2023-04-09] MEDS: Tamsulosin 0.4 MG Cap.ER PO SCH (21:01)
[2023-04-09] MEDS: diphenhydrAMINE 25 MG Cap PO PRN (22:40)
[2023-04-10] MEDS: oxyCODONE 5 MG Tab PO SCH ×6 (01:06→21:16)
[2023-04-10] MEDS: ceFAZolin 2 GM Vial IVPUSH SCH ×4 (01:44→23:55)
[2023-04-10] MEDS: Sodium Chloride 0.9% 10 ML Syringe FLUSH PRN ×4 (01:45→23:56)
[2023-04-10] MEDS: Pantoprazole 40 MG Tab.CR PO SCH (05:20)
[2023-04-10] MEDS: Baclofen 10 MG Tab PO SCH ×3 (09:20→21:14)
[2023-04-10] MEDS: Venlafaxine 150 MG Cap.ER PO SCH (09:20)
[2023-04-10] MEDS: Ibuprofen 400 MG Tab PO SCH ×3 (09:20→21:14)
[2023-04-10] MEDS: Pregabalin 100 MG Cap PO SCH ×2 (09:20→21:14)
[2023-04-10] MEDS: guaiFENesin 600 MG Tab.ER PO SCH ×3 (09:20→21:15)
[2023-04-10] MEDS: Finasteride 5 MG Tab PO SCH (09:21)
[2023-04-10] MEDS: Acetaminophen 500 MG Tab PO SCH ×3 (09:21→21:15)
[2023-04-10] MEDS: Atenolol 25 MG Tab PO SCH (09:22)
[2023-04-10] MEDS: diphenhydrAMINE 25 MG Cap PO PRN ×2 (09:26→13:21)
[2023-04-10] MEDS: Tamsulosin 0.4 MG Cap.ER PO SCH (21:13)
[2023-04-11] MEDS: oxyCODONE 5 MG Tab PO SCH ×6 (01:04→20:58)
[2023-04-11] MEDS: Pantoprazole 40 MG Tab.CR PO SCH (06:06)
[2023-04-11] MEDS: diphenhydrAMINE 25 MG Cap PO PRN ×4 (06:29→21:13)
[2023-04-11] MEDS: ceFAZolin 2 GM Vial IVPUSH SCH ×2 (08:23→16:50)
[2023-04-11] MEDS: Sodium Chloride 0.9% 10 ML Syringe FLUSH PRN ×3 (08:23→16:50)
[2023-04-11 09:29] LABS: BASOPHILS ABSOLUTE AUTO 0.1 x10-3/uL (0.0-0.3); BASOPHILS PERCENT AUTO 2.6 % (0.3-3.8); EOSINOPHILS ABSOLUTE AUTO 0.2 x10-3/uL (0.0-0.6); EOSINOPHILS PERCENT AUTO 5.9 % (0.1-6.8); HEMATOCRIT 34.9 % (38.3-50.1); HEMOGLOBIN 11.8 g/dL (12.9-17.7); LYMPHOCYTES ABSOLUTE AUTO 0.8 x10-3/uL (0.5-4.5); LYMPHOCYTES PERCENT AUTO 31.7 % (15.8-45.3); MEAN CORPUSCULAR HEMOGLOBIN 29.3 pg (27.0-33.3); MEAN CORPUSCULAR HGB CONC 33.8 g/dL (28.7-35.3); MEAN CORPUSCULAR VOLUME 86.8 fL (80.8-98.7); MEAN PLATELET VOLUME 8.1 fL (6.7-11.0); MONOCYTES ABSOLUTE AUTO 0.3 x10-3/uL (0.0-1.2); MONOCYTES PERCENT AUTO 12.3 % (5.5-15.2); NEUTROPHILS ABSOLUTE AUTO 1.3 x10-3/uL (1.7-6.9); NEUTROPHILS PERCENT AUTO 47.5 % (40.3-71.8); PLATELET COUNT,PLT 150 x10(3)uL (117-477); RED BLOOD CELL COUNT 4.02 x10(6)uL (3.90-5.90); RED CELL DISTRIBUTION WIDTH 14.6 % (12.4-15.0); WHITE BLOOD CELL COUNT,WBC 2.6 x10-3/uL (3.2-10.1)
[2023-04-11] MEDS: guaiFENesin 600 MG Tab.ER PO SCH ×3 (09:30→20:59)
[2023-04-11] MEDS: Venlafaxine 150 MG Cap.ER PO SCH (09:30)
[2023-04-11] MEDS: Ibuprofen 400 MG Tab PO SCH ×3 (09:30→20:59)
[2023-04-11] MEDS: Acetaminophen 500 MG Tab PO SCH ×3 (09:31→20:58)
[2023-04-11] MEDS: Baclofen 10 MG Tab PO SCH ×3 (09:32→20:59)
[2023-04-11] MEDS: Atenolol 25 MG Tab PO SCH (09:33)
[2023-04-11 09:38] LABS: CREATININE 1.2 mg/dL (0.70-1.30); EST CRCL DRUG DOSING (CG) 71.82 mL/min
[2023-04-11] MEDS: Pregabalin 100 MG Cap PO SCH ×2 (09:51→20:59)
[2023-04-11 10:00] LABS: SEDIMENTATION RATE MANUAL 37 mm/hr (0-15)
[2023-04-11] MEDS: Finasteride 5 MG Tab PO SCH (13:53)
[2023-04-11] MEDS: Tamsulosin 0.4 MG Cap.ER PO SCH (20:59)
[2023-04-12] MEDS: oxyCODONE 5 MG Tab PO SCH ×6 (00:50→20:45)
[2023-04-12] MEDS: ceFAZolin 2 GM Vial IVPUSH SCH ×3 (00:51→17:08)
[2023-04-12] MEDS: Sodium Chloride 0.9% 10 ML Syringe FLUSH PRN ×5 (01:00→17:14)
[2023-04-12] MEDS: diphenhydrAMINE 25 MG Cap PO PRN ×4 (04:38→21:17)
[2023-04-12] MEDS: Pantoprazole 40 MG Tab.CR PO SCH (05:59)
[2023-04-12] MEDS: Pregabalin 100 MG Cap PO SCH ×2 (09:15→20:45)
[2023-04-12] MEDS: Finasteride 5 MG Tab PO SCH (09:17)
[2023-04-12] MEDS: guaiFENesin 600 MG Tab.ER PO SCH ×3 (09:18→20:47)
[2023-04-12] MEDS: Ibuprofen 400 MG Tab PO SCH ×3 (09:19→20:46)
[2023-04-12] MEDS: Venlafaxine 150 MG Cap.ER PO SCH (09:19)
[2023-04-12] MEDS: Baclofen 10 MG Tab PO SCH ×3 (09:19→20:47)
[2023-04-12] MEDS: Atenolol 25 MG Tab PO SCH (09:20)
[2023-04-12] MEDS: Acetaminophen 500 MG Tab PO SCH ×3 (09:20→20:46)
[2023-04-12] MEDS: Tamsulosin 0.4 MG Cap.ER PO SCH (20:47)
[2023-04-13] MEDS: ceFAZolin 2 GM Vial IVPUSH SCH ×3 (00:50→17:07)
[2023-04-13] MEDS: Sodium Chloride 0.9% 10 ML Syringe FLUSH PRN ×4 (00:55→17:12)
[2023-04-13] MEDS: oxyCODONE 5 MG Tab PO SCH ×6 (00:56→21:29)
[2023-04-13] MEDS: Pantoprazole 40 MG Tab.CR PO SCH (05:04)
[2023-04-13] MEDS: Ibuprofen 400 MG Tab PO SCH ×3 (09:29→21:27)
[2023-04-13] MEDS: Pregabalin 100 MG Cap PO SCH ×2 (09:29→21:28)
[2023-04-13] MEDS: Atenolol 25 MG Tab PO SCH (09:29)
[2023-04-13] MEDS: Venlafaxine 150 MG Cap.ER PO SCH (09:29)
[2023-04-13] MEDS: Acetaminophen 500 MG Tab PO SCH ×3 (09:30→21:29)
[2023-04-13] MEDS: Baclofen 10 MG Tab PO SCH ×3 (09:30→21:28)
[2023-04-13] MEDS: Finasteride 5 MG Tab PO SCH (09:31)
[2023-04-13] MEDS: guaiFENesin 600 MG Tab.ER PO SCH ×3 (09:31→21:28)
[2023-04-13] MEDS: diphenhydrAMINE 25 MG Cap PO PRN ×2 (10:16→14:26)
[2023-04-13] MEDS: Tamsulosin 0.4 MG Cap.ER PO SCH (21:27)
[2023-04-14] MEDS: oxyCODONE 5 MG Tab PO SCH ×6 (01:19→20:43)
[2023-04-14] MEDS: Pantoprazole 40 MG Tab.CR PO SCH (05:26)
[2023-04-14] MEDS: ceFAZolin 2 GM Vial IVPUSH SCH ×3 (08:03→15:58)
[2023-04-14] MEDS: Sodium Chloride 0.9% 10 ML Syringe FLUSH PRN ×5 (08:03→16:06)
[2023-04-14] MEDS: diphenhydrAMINE 25 MG Cap PO PRN ×2 (08:53→18:17)
[2023-04-14] MEDS: Acetaminophen 500 MG Tab PO SCH ×3 (08:54→20:42)
[2023-04-14] MEDS: guaiFENesin 600 MG Tab.ER PO SCH ×3 (08:54→20:42)
[2023-04-14] MEDS: Ibuprofen 400 MG Tab PO SCH ×3 (08:55→20:41)
[2023-04-14] MEDS: Venlafaxine 150 MG Cap.ER PO SCH (08:55)
[2023-04-14] MEDS: Baclofen 10 MG Tab PO SCH ×3 (08:56→20:40)
[2023-04-14] MEDS: Atenolol 25 MG Tab PO SCH (08:58)
[2023-04-14] MEDS: Finasteride 5 MG Tab PO SCH (08:59)
[2023-04-14] MEDS: Pregabalin 100 MG Cap PO SCH ×2 (09:24→20:41)
[2023-04-14] MEDS: Tamsulosin 0.4 MG Cap.ER PO SCH (20:40)
[2023-04-14] MEDS ORDERED: Loratadine 10 MG Tab PO SCH (21:00)
[2023-04-15] MEDS: ceFAZolin 2 GM Vial IVPUSH SCH ×3 (01:01→16:18)
[2023-04-15] MEDS: Sodium Chloride 0.9% 10 ML Syringe FLUSH PRN ×4 (01:02→16:18)
[2023-04-15] MEDS: oxyCODONE 5 MG Tab PO SCH ×6 (01:03→21:04)
[2023-04-15] MEDS: diphenhydrAMINE 25 MG Cap PO PRN ×2 (05:25→16:41)
[2023-04-15] MEDS: Pantoprazole 40 MG Tab.CR PO SCH (05:27)
[2023-04-15] MEDS: Venlafaxine 150 MG Cap.ER PO SCH (08:43)
[2023-04-15] MEDS: Baclofen 10 MG Tab PO SCH ×3 (08:43→21:02)
[2023-04-15] MEDS: Loratadine 10 MG Tab PO SCH (08:43)
[2023-04-15] MEDS: Ibuprofen 400 MG Tab PO SCH ×3 (08:45→21:02)
[2023-04-15] MEDS: guaiFENesin 600 MG Tab.ER PO SCH ×3 (08:46→21:03)
[2023-04-15] MEDS: Finasteride 5 MG Tab PO SCH (08:46)
[2023-04-15] MEDS: Atenolol 25 MG Tab PO SCH (08:46)
[2023-04-15] MEDS: Acetaminophen 500 MG Tab PO SCH ×3 (08:47→21:03)
[2023-04-15] MEDS: Pregabalin 100 MG Cap PO SCH ×2 (09:19→21:02)
[2023-04-15] MEDS: Tamsulosin 0.4 MG Cap.ER PO SCH (21:01)
[2023-04-16] MEDS: ceFAZolin 2 GM Vial IVPUSH SCH ×3 (00:52→17:00)
[2023-04-16] MEDS: Sodium Chloride 0.9% 10 ML Syringe FLUSH PRN ×4 (00:58→17:10)
[2023-04-16] MEDS: oxyCODONE 5 MG Tab PO SCH ×6 (01:00→21:04)
[2023-04-16] MEDS: diphenhydrAMINE 25 MG Cap PO PRN ×3 (05:13→21:05)
[2023-04-16] MEDS: Pantoprazole 40 MG Tab.CR PO SCH (05:13)
[2023-04-16] MEDS: Ibuprofen 400 MG Tab PO SCH ×3 (09:03→21:03)
[2023-04-16] MEDS: Loratadine 10 MG Tab PO SCH (09:03)
[2023-04-16] MEDS: guaiFENesin 600 MG Tab.ER PO SCH ×3 (09:03→21:04)
[2023-04-16] MEDS: Baclofen 10 MG Tab PO SCH ×3 (09:03→21:02)
[2023-04-16] MEDS: Venlafaxine 150 MG Cap.ER PO SCH (09:03)
[2023-04-16] MEDS: Acetaminophen 500 MG Tab PO SCH ×3 (09:04→21:04)
[2023-04-16] MEDS: Pregabalin 100 MG Cap PO SCH ×2 (09:04→21:02)
[2023-04-16] MEDS: Finasteride 5 MG Tab PO SCH (09:04)
[2023-04-16] MEDS: Atenolol 25 MG Tab PO SCH (09:04)
[2023-04-16] MEDS: Tamsulosin 0.4 MG Cap.ER PO SCH (21:02)
[2023-04-17] MEDS: ceFAZolin 2 GM Vial IVPUSH SCH ×3 (01:04→16:59)
[2023-04-17] MEDS: oxyCODONE 5 MG Tab PO SCH ×6 (01:05→21:29)
[2023-04-17] MEDS: Sodium Chloride 0.9% 10 ML Syringe FLUSH PRN ×2 (01:13→09:04)
[2023-04-17] MEDS: diphenhydrAMINE 25 MG Cap PO PRN ×2 (01:16→09:05)
[2023-04-17] MEDS: Pantoprazole 40 MG Tab.CR PO SCH (05:10)
[2023-04-17] MEDS: Loratadine 10 MG Tab PO SCH (09:05)
[2023-04-17] MEDS: Pregabalin 100 MG Cap PO SCH ×2 (09:05→21:31)
[2023-04-17] MEDS: Venlafaxine 150 MG Cap.ER PO SCH (09:05)
[2023-04-17] MEDS: Baclofen 10 MG Tab PO SCH ×3 (09:06→21:31)
[2023-04-17] MEDS: Ibuprofen 400 MG Tab PO SCH ×3 (09:06→21:29)
[2023-04-17] MEDS: guaiFENesin 600 MG Tab.ER PO SCH ×3 (09:06→21:31)
[2023-04-17] MEDS: Acetaminophen 500 MG Tab PO SCH ×3 (09:07→21:27)
[2023-04-17] MEDS: Finasteride 5 MG Tab PO SCH (09:07)
[2023-04-17] MEDS: Atenolol 25 MG Tab PO SCH (09:07)
[2023-04-17] MEDS: Tamsulosin 0.4 MG Cap.ER PO SCH (21:30)
[2023-04-18] MEDS: ceFAZolin 2 GM Vial IVPUSH SCH ×3 (00:55→16:10)
[2023-04-18] MEDS: Sodium Chloride 0.9% 10 ML Syringe FLUSH PRN ×3 (01:01→16:10)
[2023-04-18] MEDS: oxyCODONE 5 MG Tab PO SCH ×6 (01:08→21:15)
[2023-04-18] MEDS: Pantoprazole 40 MG Tab.CR PO SCH (05:14)
[2023-04-18] MEDS: diphenhydrAMINE 25 MG Cap PO PRN ×2 (06:36→21:51)
[2023-04-18 06:39] LABS: BASOPHILS ABSOLUTE AUTO 0.1 x10-3/uL (0.0-0.3); BASOPHILS PERCENT AUTO 2.2 % (0.3-3.8); EOSINOPHILS ABSOLUTE AUTO 0.2 x10-3/uL (0.0-0.6); EOSINOPHILS PERCENT AUTO 5.8 % (0.1-6.8); HEMATOCRIT 33.4 % (38.3-50.1); HEMOGLOBIN 11.5 g/dL (12.9-17.7); LYMPHOCYTES ABSOLUTE AUTO 0.8 x10-3/uL (0.5-4.5); MEAN CORPUSCULAR HEMOGLOBIN 30.1 pg (27.0-33.3); MEAN CORPUSCULAR HGB CONC 34.5 g/dL (28.7-35.3); MEAN CORPUSCULAR VOLUME 87.1 fL (80.8-98.7); MEAN PLATELET VOLUME 8.4 fL (6.7-11.0); MONOCYTES ABSOLUTE AUTO 0.4 x10-3/uL (0.0-1.2); MONOCYTES PERCENT AUTO 14.3 % (5.5-15.2); NEUTROPHILS ABSOLUTE AUTO 1.2 x10-3/uL (1.7-6.9); NEUTROPHILS PERCENT AUTO 45.7 % (40.3-71.8); PLATELET COUNT,PLT 129 x10(3)uL (117-477); RED BLOOD CELL COUNT 3.84 x10(6)uL (3.90-5.90); RED CELL DISTRIBUTION WIDTH 13.9 % (12.4-15.0); WHITE BLOOD CELL COUNT,WBC 2.6 x10-3/uL (3.2-10.1)
[2023-04-18 06:53] LABS: CREATININE 1.3 mg/dL (0.70-1.30); EST CRCL DRUG DOSING (CG) 66.29 mL/min
[2023-04-18 07:08] LABS: SEDIMENTATION RATE MANUAL 36 mm/hr (0-15)
[2023-04-18] MEDS: Venlafaxine 150 MG Cap.ER PO SCH (09:13)
[2023-04-18] MEDS: Loratadine 10 MG Tab PO SCH (09:13)
[2023-04-18] MEDS: Ibuprofen 400 MG Tab PO SCH ×3 (09:14→21:53)
[2023-04-18] MEDS: guaiFENesin 600 MG Tab.ER PO SCH ×3 (09:14→21:53)
[2023-04-18] MEDS: Baclofen 10 MG Tab PO SCH ×3 (09:14→21:53)
[2023-04-18] MEDS: Atenolol 25 MG Tab PO SCH ×2 (09:14→09:23)
[2023-04-18] MEDS: Finasteride 5 MG Tab PO SCH (09:14)
[2023-04-18] MEDS: Acetaminophen 500 MG Tab PO SCH ×3 (09:15→21:54)
[2023-04-18] MEDS: Pregabalin 100 MG Cap PO SCH ×2 (09:24→21:16)
[2023-04-18] MEDS: Tamsulosin 0.4 MG Cap.ER PO SCH (21:53)
[2023-04-19] MEDS: ceFAZolin 2 GM Vial IVPUSH SCH ×3 (00:52→16:09)
[2023-04-19] MEDS: Sodium Chloride 0.9% 10 ML Syringe FLUSH PRN ×3 (00:54→16:09)
[2023-04-19] MEDS: oxyCODONE 5 MG Tab PO SCH ×6 (01:08→21:04)
[2023-04-19] MEDS: Pantoprazole 40 MG Tab.CR PO SCH (05:00)
[2023-04-19] MEDS: Pregabalin 100 MG Cap PO SCH ×2 (08:49→21:04)
[2023-04-19] MEDS: Atenolol 25 MG Tab PO SCH (08:52)
[2023-04-19] MEDS: Loratadine 10 MG Tab PO SCH (08:52)
[2023-04-19] MEDS: guaiFENesin 600 MG Tab.ER PO SCH ×3 (08:52→21:04)
[2023-04-19] MEDS: Ibuprofen 400 MG Tab PO SCH ×3 (08:53→21:04)
[2023-04-19] MEDS: Baclofen 10 MG Tab PO SCH ×3 (08:53→21:04)
[2023-04-19] MEDS: Venlafaxine 150 MG Cap.ER PO SCH (08:53)
[2023-04-19] MEDS: Finasteride 5 MG Tab PO SCH (08:53)
[2023-04-19] MEDS: Acetaminophen 500 MG Tab PO SCH ×3 (08:54→21:05)
[2023-04-19] MEDS: diphenhydrAMINE 25 MG Cap PO PRN ×2 (16:53→21:13)
[2023-04-19] MEDS: Tamsulosin 0.4 MG Cap.ER PO SCH (21:04)
[2023-04-20] MEDS: Sodium Chloride 0.9% 10 ML Syringe FLUSH PRN ×4 (00:57→14:57)
[2023-04-20] MEDS: ceFAZolin 2 GM Vial IVPUSH SCH ×4 (00:57→15:13)
[2023-04-20] MEDS: oxyCODONE 5 MG Tab PO SCH ×6 (01:03→21:32)
[2023-04-20] MEDS: Pantoprazole 40 MG Tab.CR PO SCH (05:04)
[2023-04-20] MEDS: diphenhydrAMINE 25 MG Cap PO PRN ×2 (07:19→21:33)
[2023-04-20] MEDS: guaiFENesin 600 MG Tab.ER PO SCH ×3 (09:04→21:32)
[2023-04-20] MEDS: Pregabalin 100 MG Cap PO SCH ×2 (09:04→21:31)
[2023-04-20] MEDS: Ibuprofen 400 MG Tab PO SCH ×3 (09:04→21:31)
[2023-04-20] MEDS: Venlafaxine 150 MG Cap.ER PO SCH (09:05)
[2023-04-20] MEDS: Finasteride 5 MG Tab PO SCH (09:05)
[2023-04-20] MEDS: Loratadine 10 MG Tab PO SCH (09:05)
[2023-04-20] MEDS: Baclofen 10 MG Tab PO SCH ×3 (09:05→21:30)
[2023-04-20] MEDS: Acetaminophen 500 MG Tab PO SCH ×3 (09:05→21:32)
[2023-04-20] MEDS: Atenolol 25 MG Tab PO SCH (09:05)
[2023-04-20] MEDS: Tamsulosin 0.4 MG Cap.ER PO SCH (21:30)
[2023-04-21] MEDS: Sodium Chloride 0.9% 10 ML Syringe FLUSH PRN ×4 (00:58→16:56)
[2023-04-21] MEDS: ceFAZolin 2 GM Vial IVPUSH SCH ×3 (00:58→16:56)
[2023-04-21] MEDS: oxyCODONE 5 MG Tab PO SCH ×6 (01:04→21:16)
[2023-04-21] MEDS: Pantoprazole 40 MG Tab.CR PO SCH (05:07)
[2023-04-21] MEDS: guaiFENesin 600 MG Tab.ER PO SCH ×3 (08:47→21:20)
[2023-04-21] MEDS: Atenolol 25 MG Tab PO SCH (08:47)
[2023-04-21] MEDS: Loratadine 10 MG Tab PO SCH (08:47)
[2023-04-21] MEDS: Venlafaxine 150 MG Cap.ER PO SCH (08:47)
[2023-04-21] MEDS: Baclofen 10 MG Tab PO SCH ×3 (08:47→21:19)
[2023-04-21] MEDS: Finasteride 5 MG Tab PO SCH (08:47)
[2023-04-21] MEDS: Ibuprofen 400 MG Tab PO SCH ×3 (08:48→21:20)
[2023-04-21] MEDS: Acetaminophen 500 MG Tab PO SCH ×3 (08:49→21:21)
[2023-04-21] MEDS: Pregabalin 100 MG Cap PO SCH ×2 (08:56→21:30)
[2023-04-21] MEDS: diphenhydrAMINE 25 MG Cap PO PRN (18:43)
[2023-04-21] MEDS: Tamsulosin 0.4 MG Cap.ER PO SCH (21:18)
[2023-04-22] MEDS: ceFAZolin 2 GM Vial IVPUSH SCH ×3 (00:43→16:58)
[2023-04-22] MEDS: Sodium Chloride 0.9% 10 ML Syringe FLUSH PRN ×6 (00:43→17:05)
[2023-04-22] MEDS: oxyCODONE 5 MG Tab PO SCH ×6 (01:01→21:04)
[2023-04-22] MEDS: Pantoprazole 40 MG Tab.CR PO SCH (05:12)
[2023-04-22] MEDS: Loratadine 10 MG Tab PO SCH (08:39)
[2023-04-22] MEDS: Acetaminophen 500 MG Tab PO SCH ×3 (08:39→20:59)
[2023-04-22] MEDS: Finasteride 5 MG Tab PO SCH (08:39)
[2023-04-22] MEDS: guaiFENesin 600 MG Tab.ER PO SCH ×3 (08:39→20:59)
[2023-04-22] MEDS: Ibuprofen 400 MG Tab PO SCH ×3 (08:39→20:58)
[2023-04-22] MEDS: Pregabalin 100 MG Cap PO SCH ×2 (08:40→21:03)
[2023-04-22] MEDS: Baclofen 10 MG Tab PO SCH ×3 (08:40→20:57)
[2023-04-22] MEDS: Venlafaxine 150 MG Cap.ER PO SCH (08:42)
[2023-04-22] MEDS: Atenolol 25 MG Tab PO SCH (08:43)
[2023-04-22] MEDS: diphenhydrAMINE 25 MG Cap PO PRN ×2 (09:41→21:15)
[2023-04-22] MEDS: Tamsulosin 0.4 MG Cap.ER PO SCH (20:57)
[2023-04-23] MEDS: ceFAZolin 2 GM Vial IVPUSH SCH ×3 (01:29→16:26)
[2023-04-23] MEDS: oxyCODONE 5 MG Tab PO SCH ×6 (01:31→21:31)
[2023-04-23] MEDS: Pantoprazole 40 MG Tab.CR PO SCH (05:44)
[2023-04-23] MEDS: Sodium Chloride 0.9% 10 ML Syringe FLUSH PRN ×4 (08:44→16:35)
[2023-04-23] MEDS: Pregabalin 100 MG Cap PO SCH ×2 (08:45→21:29)
[2023-04-23] MEDS: diphenhydrAMINE 25 MG Cap PO PRN ×2 (08:46→22:20)
[2023-04-23] MEDS: Ibuprofen 400 MG Tab PO SCH ×3 (08:46→21:29)
[2023-04-23] MEDS: Acetaminophen 500 MG Tab PO SCH ×3 (08:46→21:30)
[2023-04-23] MEDS: Loratadine 10 MG Tab PO SCH (08:46)
[2023-04-23] MEDS: Baclofen 10 MG Tab PO SCH ×3 (08:47→21:28)
[2023-04-23] MEDS: Finasteride 5 MG Tab PO SCH (08:47)
[2023-04-23] MEDS: Atenolol 25 MG Tab PO SCH (08:50)
[2023-04-23] MEDS: guaiFENesin 600 MG Tab.ER PO SCH ×3 (08:51→21:30)
[2023-04-23] MEDS: Venlafaxine 150 MG Cap.ER PO SCH (08:51)
[2023-04-23] MEDS: Tamsulosin 0.4 MG Cap.ER PO SCH (21:28)
[2023-04-24] MEDS: ceFAZolin 2 GM Vial IVPUSH SCH ×3 (01:15→16:48)
[2023-04-24] MEDS: oxyCODONE 5 MG Tab PO SCH ×6 (01:15→21:23)
[2023-04-24] MEDS: diphenhydrAMINE 25 MG Cap PO PRN (02:00)
[2023-04-24] MEDS: Pantoprazole 40 MG Tab.CR PO SCH (06:22)
[2023-04-24] MEDS: Sodium Chloride 0.9% 10 ML Syringe FLUSH PRN ×4 (09:00→16:58)
[2023-04-24] MEDS: Pregabalin 100 MG Cap PO SCH ×2 (09:03→21:21)
[2023-04-24] MEDS: Loratadine 10 MG Tab PO SCH (09:03)
[2023-04-24] MEDS: Ibuprofen 400 MG Tab PO SCH ×3 (09:04→21:22)
[2023-04-24] MEDS: Baclofen 10 MG Tab PO SCH ×3 (09:04→21:21)
[2023-04-24] MEDS: Acetaminophen 500 MG Tab PO SCH ×3 (09:05→21:22)
[2023-04-24] MEDS: guaiFENesin 600 MG Tab.ER PO SCH ×3 (09:05→21:22)
[2023-04-24] MEDS: Finasteride 5 MG Tab PO SCH (09:05)
[2023-04-24] MEDS: Atenolol 25 MG Tab PO SCH (09:08)
[2023-04-24] MEDS: Venlafaxine 150 MG Cap.ER PO SCH (09:08)
[2023-04-24] MEDS: Tamsulosin 0.4 MG Cap.ER PO SCH (21:21)
[2023-04-25] MEDS: oxyCODONE 5 MG Tab PO SCH ×6 (01:04→21:10)
[2023-04-25] MEDS: ceFAZolin 2 GM Vial IVPUSH SCH ×4 (01:05→23:57)
[2023-04-25] MEDS: Sodium Chloride 0.9% 10 ML Syringe FLUSH PRN ×5 (01:15→16:50)
[2023-04-25] MEDS: diphenhydrAMINE 25 MG Cap PO PRN ×4 (04:20→23:53)
[2023-04-25] MEDS: Pantoprazole 40 MG Tab.CR PO SCH (05:59)
[2023-04-25 06:27] LABS: BASOPHILS ABSOLUTE AUTO 0.1 x10-3/uL (0.0-0.3); BASOPHILS PERCENT AUTO 2.4 % (0.3-3.8); EOSINOPHILS ABSOLUTE AUTO 0.1 x10-3/uL (0.0-0.6); EOSINOPHILS PERCENT AUTO 3.5 % (0.1-6.8); HEMATOCRIT 38.8 % (38.3-50.1); HEMOGLOBIN 13.4 g/dL (12.9-17.7); LYMPHOCYTES PERCENT AUTO 30.6 % (15.8-45.3); MEAN CORPUSCULAR HEMOGLOBIN 29.5 pg (27.0-33.3); MEAN CORPUSCULAR HGB CONC 34.4 g/dL (28.7-35.3); MEAN CORPUSCULAR VOLUME 85.7 fL (80.8-98.7); MEAN PLATELET VOLUME 8.2 fL (6.7-11.0); MONOCYTES ABSOLUTE AUTO 0.4 x10-3/uL (0.0-1.2); MONOCYTES PERCENT AUTO 11.4 % (5.5-15.2); NEUTROPHILS ABSOLUTE AUTO 1.7 x10-3/uL (1.7-6.9); NEUTROPHILS PERCENT AUTO 52.1 % (40.3-71.8); PLATELET COUNT,PLT 132 x10(3)uL (117-477); RED BLOOD CELL COUNT 4.52 x10(6)uL (3.90-5.90); RED CELL DISTRIBUTION WIDTH 13.3 % (12.4-15.0); WHITE BLOOD CELL COUNT,WBC 3.3 x10-3/uL (3.2-10.1)
[2023-04-25 06:35] LABS: CREATININE 1.3 mg/dL (0.70-1.30); EST CRCL DRUG DOSING (CG) 66.29 mL/min
[2023-04-25 06:49] LABS: SEDIMENTATION RATE MANUAL 41 mm/hr (0-15)
[2023-04-25] MEDS: Pregabalin 100 MG Cap PO SCH ×2 (09:08→21:09)
[2023-04-25] MEDS: Loratadine 10 MG Tab PO SCH (09:08)
[2023-04-25] MEDS: Baclofen 10 MG Tab PO SCH ×3 (09:08→21:10)
[2023-04-25] MEDS: Venlafaxine 150 MG Cap.ER PO SCH (09:08)
[2023-04-25] MEDS: Atenolol 25 MG Tab PO SCH (09:09)
[2023-04-25] MEDS: Ibuprofen 400 MG Tab PO SCH ×3 (09:09→21:12)
[2023-04-25] MEDS: Finasteride 5 MG Tab PO SCH (09:09)
[2023-04-25] MEDS: guaiFENesin 600 MG Tab.ER PO SCH ×3 (09:09→21:09)
[2023-04-25] MEDS: Acetaminophen 500 MG Tab PO SCH ×3 (09:10→21:13)
[2023-04-25] MEDS: Tamsulosin 0.4 MG Cap.ER PO SCH (21:09)
[2023-04-26] MEDS: Sodium Chloride 0.9% 10 ML Syringe FLUSH PRN ×2 (00:01→14:57)
[2023-04-26] MEDS: oxyCODONE 5 MG Tab PO SCH ×4 (00:50→13:02)
[2023-04-26] MEDS: Pantoprazole 40 MG Tab.CR PO SCH (05:17)
[2023-04-26] MEDS: diphenhydrAMINE 25 MG Cap PO PRN (08:02)
[2023-04-26] MEDS: Polyethylene Glycol 3350 Powder 17 GM Packet PO PRN (08:29)
[2023-04-26] MEDS: ceFAZolin 2 GM Vial IVPUSH SCH ×2 (09:10→15:00)
[2023-04-26] MEDS: Finasteride 5 MG Tab PO SCH (09:26)
[2023-04-26] MEDS: guaiFENesin 600 MG Tab.ER PO SCH ×2 (09:26→13:07)
[2023-04-26] MEDS: Ibuprofen 400 MG Tab PO SCH ×2 (09:26→13:06)
[2023-04-26] MEDS: Venlafaxine 150 MG Cap.ER PO SCH (09:26)
[2023-04-26] MEDS: Baclofen 10 MG Tab PO SCH ×2 (09:27→13:08)
[2023-04-26] MEDS: Acetaminophen 500 MG Tab PO SCH ×2 (09:27→13:04)
[2023-04-26] MEDS: Loratadine 10 MG Tab PO SCH (09:28)
[2023-04-26] MEDS: Pregabalin 100 MG Cap PO SCH (09:33)
[2023-04-26] MEDS: Atenolol 25 MG Tab PO SCH (09:33)
== END 2023-04-26 15:45 | disposition home or self-care (01) | DRG 540 ==
LOC: FB.MS 14:57
PROVIDERS: ADMIT Family Medicine; ATTEND Family Medicine
DX: M46.27 Osteomyelitis of vertebra, lumbosacral region (principal); B00.2 Herpesviral gingivostomatitis and pharyngotonsillitis; R78.81 Bacteremia; F33.9 Major depressive disorder, recurrent, unspecified; M46.47 Discitis, unspecified, lumbosacral region; B95.61 Methicillin susceptible Staphylococcus aureus infection as the cause of diseases classified elsewhere; M48.02 Spinal stenosis, cervical region; G89.4 Chronic pain syndrome; E78.2 Mixed hyperlipidemia; I10 Essential (primary) hypertension; K21.9 Gastro-esophageal reflux disease without esophagitis; G47.00 Insomnia, unspecified; J45.909 Unspecified asthma, uncomplicated; N40.0 Benign prostatic hyperplasia without lower urinary tract symptoms; Z98.1 Arthrodesis status; Z91.040 Latex allergy status; Z88.6 Allergy status to analgesic agent; Z88.5 Allergy status to narcotic agent; Z88.8 Allergy status to other drugs, medicaments and biological substances; Z79.01 Long term (current) use of anticoagulants; Z79.899 Other long term (current) drug therapy; Z99.81 Dependence on supplemental oxygen
CPT/HCPCS: 36415; 71045; 82565; 84450; 85025; 85651; 86140; 99305; 99308; 99309; 99315; A9270-GY; J0690; J1642; J3490